=== PATIENT | female | born 1930 | race Caucasian/White ===

== ENCOUNTER 2018-11-13 09:20 | Observation (INO) | payer MEDICARE, OTHER ==
[~2018-11-13] VITALS: Ht 157.5 cm; Wt 78.7 kg
[~2018-11-13 09:20] MED LIST: CEPH500 PO; HYDACE5 PO; NAPR550 PO; PRED10 PO; PRED20 PO; PROACE100 PO
[2018-11-13] MEDS ORDERED: Aspir 8181 MG PO (09:28)
[2018-11-13 09:50] LABS: BASOPHILS ABSOLUTE AUTO 0.04 K/mm3 (0.00-0.23); BASOPHILS PERCENT AUTO 1 % (0-2); EOSINOPHILS ABSOLUTE AUTO 0.06 K/mm3 (0.00-0.68); EOSINOPHILS PERCENT AUTO 1 % (0-6); Hematocrit 41.1 % (33.0-51.0); Hemoglobin 13.2 g/dL (11.5-16.0); IMMATURE GRAN ABSOLUTE AUTO 0.02 K/mm3 (0.00-0.10); IMMATURE GRAN PERCENT AUTO 0 % (0-1); LYMPHOCYTES ABSOLUTE AUTO 1.45 K/mm3 (0.84-5.20); LYMPHOCYTES PERCENT AUTO 22 % (21-46); MONOCYTES ABSOLUTE AUTO 0.64 K/mm3 (0.16-1.47); MONOCYTES PERCENT AUTO 10 % (4-13); Mean Corpuscular HGB 28.6 pg (26.0-34.0); Mean Corpuscular HGB Conc 32.1 g/dL (31.5-36.5); Mean Corpuscular Volume 89 fL (80-100); Mean Platelet Volume 10.4 fL (9.1-12.4); NEUTROPHILS ABSOLUTE AUTO 4.48 K/mm3 (1.96-9.15); NEUTROPHILS PERCENT AUTO 67 % (41-73); Platelet Count 292 K/mm3 (150-400); RDW Coefficient Variation 14.3 % (11.7-14.2); RDW Standard Deviation 46.5 fL (35.1-46.3); Red Blood Cell Count 4.61 M/mm3 (3.80-5.20); White Blood Cell Count 6.69 K/mm3 (4.00-11.30)
[2018-11-13 10:09] LABS: Alanine Aminotransfer (ALT/SGP 19 U/L (12-78); Albumin, Blood 3.2 g/dL (3.4-5.0); Albumin/Globulin Ratio 0.8 (0.8-1.8); Alk Phos 89 U/L (50-136); Anion Gap 7 mmol/L (6-16); Aspartate Aminotrans (AST/SGOT 9 U/L (12-37); Bilirubin, Total 0.4 mg/dL (0.1-1.0); Blood Urea Nitrogen 14 mg/dL (8-24); Bun/Creatinine Ratio 23.2 (12.0-20.0); CO2, Blood 28 mmol/L (21-32); Calcium, Blood 8.8 mg/dL (8.5-10.1); Chloride, Blood 108 mmol/L (98-108); Globulin, Blood 3.8 g/dL (2.2-4.0); Glomerular Filtration Rate >60 (60-); Glucose, Blood 137 mg/dL (70-99); Potassium, Blood 3.5 mmol/L (3.5-5.5); Sodium, Blood 143 mmol/L (136-145); Troponin I 0.031 ng/mL (0.000-0.040)
[2018-11-13] MEDS ORDERED: VITAMIN D PO (12:25)
[2018-11-13] MEDS ORDERED: MAGNESIUM250 MG PO (12:25)
[2018-11-13] MEDS ORDERED: Fish Oil 10001000 MG PO (12:26)
[2018-11-13] MEDS ORDERED: SINUS RELIEF PO (15:30)
--- NOTE | 2018-11-13 15:56 | NUR ---
PT ARRIVED TO ROOM 334 VIA W/C FROM ED. PT A/O X4, INDEP INTO BATHROOM. PT DENIES ANY CHEST PAIN AT THIS TIME TIME REPORTS INTERMITTENT SHARP PAIN TO MID CHEST THAT ONLY LAST FOR A FEW SECONDS THAN GOES AWAY, PT DENIES ANY RADIATING OR OTHER COMPLAINTS. LS CLEAR, ON RA. HRR. TELE NSR AT 73. 1+ BLE EDEMA. PT ORIENTED TO ROOM AND CALL SYSTEM, CALL LIGHT IN REACH.
[2018-11-13 17:41] LABS: Creatine Kinase MB 1.3 ng/mL (0.0-3.6); Troponin I 0.037 ng/mL (0.000-0.040)
[2018-11-13 17:42] LABS: Thyroid Stimulating Hormone 0.493 uIU/mL (0.360-4.800)
[2018-11-14 01:45] LABS: Hematocrit 37.1 % (33.0-51.0); Hemoglobin 12.1 g/dL (11.5-16.0); Mean Corpuscular HGB 28.4 pg (26.0-34.0); Mean Corpuscular HGB Conc 32.6 g/dL (31.5-36.5); Mean Corpuscular Volume 87 fL (80-100); Mean Platelet Volume 10.1 fL (9.1-12.4); Platelet Count 268 K/mm3 (150-400); RDW Coefficient Variation 14.4 % (11.7-14.2); RDW Standard Deviation 46.2 fL (35.1-46.3); Red Blood Cell Count 4.26 M/mm3 (3.80-5.20); White Blood Cell Count 5.49 K/mm3 (4.00-11.30)
[2018-11-14 01:51] LABS: Anion Gap 6 mmol/L (6-16); Blood Urea Nitrogen 12 mg/dL (8-24); Bun/Creatinine Ratio 19.1 (12.0-20.0); CO2, Blood 28 mmol/L (21-32); Calcium, Blood 8.2 mg/dL (8.5-10.1); Chloride, Blood 111 mmol/L (98-108); Creatinine, Blood 0.63 mg/dL (0.40-1.00); Glomerular Filtration Rate >60 (60-); Glucose, Blood 98 mg/dL (70-99); Magnesium, Blood 1.9 mg/dL (1.6-2.4); Potassium, Blood 3.6 mmol/L (3.5-5.5); Sodium, Blood 145 mmol/L (136-145)
[2018-11-14 01:56] LABS: Creatine Kinase MB Index 1.7 (0.0-4.0); Troponin I 0.034 ng/mL (0.000-0.040)
[2018-11-14 10:13] LABS: CPK Creatine Kinase 62 U/L (26-193); Troponin I 0.035 ng/mL (0.000-0.040)
[2018-11-14 10:14] LABS: Creatine Kinase MB <1.0 ng/mL (0.0-3.6); Creatine Kinase MB Index Unable to Calculate (0.0-4.0)
[2018-11-14] MEDS ORDERED: ACET325 PO (12:25)
[2018-11-14] MEDS ORDERED: Hydrochloroth12.5 MG PO (12:26)
[2018-11-14] MEDS ORDERED: CALCIUM CIT 311 EACH PO (12:26)
[2018-11-14] MEDS ORDERED: Lopressor 25 mg25 MG PO (12:27)
[2018-11-14] MEDS ORDERED: ONDA4ODT MM (12:27)
--- NOTE | 2018-11-14 13:26 | NUR ---
DISCHARGE INSTRUCTIONS REVIEWED WITH PT. IV X2 DC'D. PT ESTABLISHED WITH NEW PCP. PT DC'D HOME WITH SON ESCORTED OUT VIA W/C AT 1315.
== END 2018-11-14 13:16 | disposition home or self-care (01) ==
LOC: ER 09:20 → MEDS 09:21
PROVIDERS: Physician Assistant; ADMIT Family Medicine
DX: I16.0 Hypertensive urgency (principal); R07.2 Precordial pain; Z87.891 Personal history of nicotine dependence
CPT/HCPCS: 36415; 71046; 71275; 80048; 80053; 82550; 82553; 82947; 83735; 84443; 84484; 85025; 85027; 93005; 93010; 93306; 96372; 99285-25; G0378; J1650; J7030; Q9967

== ENCOUNTER 2020-06-20 07:13 | Emergency (ER) | payer MEDICARE, OTHER ==
[~2020-06-20] VITALS: Ht 160 cm; Wt 69.0 kg
[~2020-06-20 07:13] MED LIST changes: +ACET325 PO; +Aspir 8181 MG PO; +CALCIUM CIT 311 EACH PO; +Fish Oil 10001000 MG PO; +Hydrochloroth12.5 MG PO; +Lopressor 25 mg25 MG PO; +MAGNESIUM250 MG PO; +ONDA4ODT MM; +SINUS RELIEF PO; +VITAMIN D PO
[2020-06-20 09:05] LABS: BASOPHILS ABSOLUTE AUTO 0.05 K/mm3 (0.00-0.23); BASOPHILS PERCENT AUTO 1 % (0-2); EOSINOPHILS ABSOLUTE AUTO 0.23 K/mm3 (0.00-0.68); EOSINOPHILS PERCENT AUTO 3 % (0-6); Hematocrit 41.2 % (33.0-51.0); Hemoglobin 13.6 g/dL (11.5-16.0); IMMATURE GRAN ABSOLUTE AUTO 0.03 K/mm3 (0.00-0.10); IMMATURE GRAN PERCENT AUTO 0 % (0-1); LYMPHOCYTES ABSOLUTE AUTO 1.06 K/mm3 (0.84-5.20); LYMPHOCYTES PERCENT AUTO 16 % (21-46); MONOCYTES ABSOLUTE AUTO 0.79 K/mm3 (0.16-1.47); MONOCYTES PERCENT AUTO 12 % (4-13); Mean Corpuscular Volume 88 fL (80-100); Mean Platelet Volume 10.2 fL (9.1-12.4); NEUTROPHILS ABSOLUTE AUTO 4.63 K/mm3 (1.96-9.15); NEUTROPHILS PERCENT AUTO 68 % (41-73); Platelet Count 296 K/mm3 (150-400); RDW Coefficient Variation 13.8 % (11.7-14.2); RDW Standard Deviation 43.8 fL (35.1-46.3); Red Blood Cell Count 4.69 M/mm3 (3.80-5.20); White Blood Cell Count 6.79 K/mm3 (4.00-11.30)
[2020-06-20 09:28] LABS: Alanine Aminotransfer (ALT/SGP 17 U/L (12-78); Albumin, Blood 3.1 g/dL (3.4-5.0); Albumin/Globulin Ratio 0.8 (0.8-1.8); Alk Phos 88 U/L (50-136); Anion Gap 6 mmol/L (6-16); Aspartate Aminotrans (AST/SGOT 12 U/L (12-37); Bilirubin, Total 0.5 mg/dL (0.1-1.0); Blood Urea Nitrogen 14 mg/dL (8-24); Bun/Creatinine Ratio 21.9 (12.0-20.0); CO2, Blood 32 mmol/L (21-32); Chloride, Blood 102 mmol/L (98-108); Creatinine, Blood 0.64 mg/dL (0.40-1.00); Globulin, Blood 3.9 g/dL (2.2-4.0); Glomerular Filtration Rate >60 (60-); Glucose, Blood 133 mg/dL (70-99); Potassium, Blood 3.3 mmol/L (3.5-5.5); Sodium, Blood 140 mmol/L (136-145)
== END 2020-06-20 11:00 | disposition home or self-care (01) ==
LOC: ER 07:13
PROVIDERS: Emergency Medicine
DX: R51.9 Headache, unspecified (principal); Z79.899 Other long term (current) drug therapy
CPT/HCPCS: 36415; 70480; 80053; 85025; 85651; 99284-25